=== PATIENT | male | born 1965 | race Caucasian/White ===

== ENCOUNTER 2019-09-15 05:15 | Outpatient (CLI) | payer OTHER ==
[2019-09-15 10:13] LABS: #Eosinphils 0.1 thou/uL (0.0-0.7); #Monocytes 0.6 thou/uL (0.11-0.59); #Neutrophils 1.9 thou/uL (1.40-6.50); %Eosinophils 2.6 % (0.0-10.0); %Lymphocytes 42.7 % (21.0-51.0); %Monocytes 12.4 % (0.0-10.0); %Neutrophils 41.4 % (42.0-75.0); Hemoglobin 15.6 g/dL (14.0-18.0); Mean Corpuscular Hemoglobin 31.2 pg (27.0-31.0); Mean Corpuscular Volume 89.1 fL (78.0-98.0); Mean Platelet Volume 8.9 fL (7.4-10.4); Platelet Count 199 thou/uL (130-400); RBC Distribution Width 10.8 % (11.5-14.5); White Blood Cell (WBC) Count 4.7 thou/uL (4.8-10.8)
== END 2019-09-15 05:16 | disposition home or self-care (01) ==
LOC: LABBT 05:15
PROVIDERS: ATTEND Orthopaedic Surgery Hand Surgery
DX: Z01.812 Encounter for preprocedural laboratory examination (principal); M67.442 Ganglion, left hand
CPT/HCPCS: 85025

== ENCOUNTER 2019-09-18 12:56 | Day surgery (SDC) | payer OTHER ==
[2019-09-15 08:49] VITALS: BMI 29.5
[2019-09-18] MEDS ORDERED: Clindamycin/D5W 600 mg/50 ml Premix Bag ONE (13:31)
[2019-09-18] MEDS ORDERED: Bupivacaine PF 0.5% 30 ML VIAL ONE (15:11)
[2019-09-18] MEDS ORDERED: Dexamethasone 20 MG/5 ML VIAL ONE (15:11)
[2019-09-18] MEDS ORDERED: Betamet Acet/Betamet Na Ph 30 MG/5 ML VIAL ONE (15:11)
[2019-09-18] MEDS ORDERED: PROPOFOL 200 MG/20 ML VIAL ONE (15:11)
[2019-09-18] MEDS ORDERED: Ondansetron PF 4 MG/2 ML Vial ONE (15:11)
[2019-09-18] MEDS ORDERED: EPINEPHrine 1 MG/ML AMP ONE (15:11)
[2019-09-18] MEDS ORDERED: Lidocaine 1% PF 5 ML VIAL ONE (15:11)
[2019-09-18] MEDS ORDERED: Bacitracin Zinc Ointment 30 gm TUBE ONE (15:11)
[2019-09-18] MEDS ORDERED: Fentanyl 100 MCG/2 ML VIAL ONE (15:25)
[2019-09-18] MEDS ORDERED: Ketorolac Tromethamine 30 MG/ML VIAL ONE (16:54)
[2019-09-18] MEDS ORDERED: HYDROcodone/Acetaminophen 5/325 mg Tablet ONE (18:00)
--- NOTE | 2019-09-18 21:34 | OP ---
DATE OF PROCEDURE: 09/18/2019 PREOPERATIVE DIAGNOSIS: Left middle finger ganglion. POSTOPERATIVE DIAGNOSIS: Left middle finger ganglion, 1.0 cm emanated from the junction of the flexor tendon sheath as it went onto the A2 tomasz. PROCEDURE PERFORMED: Left middle finger excision of ganglion flexor tendon sheath. SPECIMENS SENT: Ganglion from the flexor tendon sheath. TOURNIQUET TIME: 12 minutes. ESTIMATED BLOOD LOSS: 10 mL. ANESTHESIA: General LMA technique augmented by 10 mL of 0.5% at metacarpophalangeal joint block level. DESCRIPTION OF PROCEDURE: After successful general endotracheal anesthesia, limb was prepped and draped. The patient then had time-out done appropriately. We identified the middle finger as the ganglion site and it was located on the ulnar aspect, so we created a Brendon incision to maximize this dissection. We then carried through skin and subcutaneous tissue and at 0.5 mm proximally, the ganglion identified. The ulnar digital nerve and neurovascular bundle protected. We then dissected away from the both neurovascular bundles, found the mass slightly centered more ulna and lifted out until there was a 2 mm x 2 mm rim of flexor sheath which we removed as well. The flexor tendon was intact completely. A2 tomasz was intact completely. The mass was sent to pathology and we released the tourniquet. Placed 3 mL of Celestone in the wound, held pressure for 5 minutes and then we had excellent hemostasis. Closed incision with interrupted 4-0 nylon in a simple pattern. Bulky dressing was applied and the patient left the operating room without evidence of anesthetic or operative complications. Job ID: [id number]
== END 2019-09-18 18:20 | disposition home or self-care (01) ==
LOC: SDC 12:56
PROVIDERS: ATTEND Orthopaedic Surgery Hand Surgery
PROC: 0LB80ZZ Excision of Left Hand Tendon, Open Approach (ICD-10-PCS; principal; 2019-09-18)
DX: M67.442 Ganglion, left hand (principal); E78.00 Pure hypercholesterolemia, unspecified; E78.5 Hyperlipidemia, unspecified; Z79.82 Long term (current) use of aspirin; Z79.899 Other long term (current) drug therapy; Z88.0 Allergy status to penicillin
CPT/HCPCS: 88304; J0171; J0702; J1100; J1885; J2001; J2405; J2704; J3010; J3490; S0020

== ENCOUNTER 2020-11-25 09:19 | Outpatient (CLI) | payer BC ==
[2020-11-25] MEDS ORDERED: Magnevist 469MG/ML 20 ML VIAL ONE (13:16)
== END 2020-11-25 09:20 | disposition home or self-care (01) ==
LOC: TBSIIMAG 09:19
PROVIDERS: ATTEND Psychiatry & Neurology Neurology
DX: R42 Dizziness and giddiness (principal); I67.82 Cerebral ischemia
CPT/HCPCS: 70553; A9579

== ENCOUNTER 2021-01-08 10:23 | Outpatient (CLI) | payer BC | END 2021-01-08 10:24 | disposition home or self-care (01) | LOC: SCSMRI 10:23 | PROVIDERS: ATTEND Family Medicine | DX: M47.22 Other spondylosis with radiculopathy, cervical region (principal); R51.9 Headache, unspecified; R42 Dizziness and giddiness; H93.13 Tinnitus, bilateral; M48.02 Spinal stenosis, cervical region; M48.54XA Collapsed vertebra, not elsewhere classified, thoracic region, initial encounter for fracture | CPT/HCPCS: 71046; 72141 ==

== ENCOUNTER 2021-09-01 16:30 | Outpatient (CLI) | payer BC | END 2021-09-01 16:31 | disposition home or self-care (01) | LOC: SLEEPLAB 16:30 | PROVIDERS: ATTEND Family Medicine | DX: G47.33 Obstructive sleep apnea (adult) (pediatric) (principal); R53.83 Other fatigue; R09.89 Other specified symptoms and signs involving the circulatory and respiratory systems; R06.83 Snoring; G47.00 Insomnia, unspecified; E66.9 Obesity, unspecified; Z68.29 Body mass index [BMI] 29.0-29.9, adult | CPT/HCPCS: 95806 ==

== ENCOUNTER 2022-01-28 09:01 | Outpatient (CLI) | payer BC | END 2022-01-28 09:02 | disposition home or self-care (01) | LOC: LABBT 09:01 | PROVIDERS: ATTEND Orthopaedic Surgery | DX: Z01.818 Encounter for other preprocedural examination (principal); M17.11 Unilateral primary osteoarthritis, right knee | CPT/HCPCS: 71046; 93005; 93010 ==

== ENCOUNTER 2022-02-02 06:25 | Observation (INO) | payer BC ==
[2022-01-28 10:16] LABS: Bilirubin Neg (Negative); Blood, Urine Negative (Negative); Clarity Clear (Clear); Glucose, Urine (Dipstick) Normal (Negative); Ketone, Urine Negative (Negative); Leukocyte Negative (Negative); Nitrite Negative (Negative); Protein, Urine (Dipstick) Negative (Neg-Trace); Specific Gravity, Urine 1.025 (1.002-1.036); Urobilinogen Normal mg/dL (Less than 2)
[2022-01-28 10:32] LABS: #Basophils 0.1 10x3/uL (0.0-0.2); #Eosinphils 0.2 10x3/uL (0.0-0.5); #Monocytes 0.6 10x3/uL (0.0-1.1); #Neutrophils 1.8 10x3/uL (1.5-8.4); %Basophils 1.3 % (0.0-2.0); %Eosinophils 3.6 % (0.0-6.0); %Lymphocytes 42.8 % (18.0-47.0); %Monocytes 12.8 % (0.0-10.0); %Neutrophils 39.3 % (40.0-75.0); Mean Corpuscular HGB CONC 34.2 g/dL (32.0-36.0); Mean Corpuscular Hemoglobin 30.1 pg (27.0-33.0); Mean Corpuscular Volume 88.2 fl (81.2-95.1); Mean Platelet Volume 10.6 fl (7.4-10.4); Platelet Count 206 10x3/uL (150-450); RBC Distribution Width 12.4 % (11.5-14.5); Red Blood Cell (RBC) Count 4.98 10x6/uL (4.32-5.72); White Blood Cell (WBC) Count 4.5 10x3/uL (3.5-10.5)
[2022-01-28 10:56] LABS: Anion Gap 13 mmol/L (10-20); BUN (Urea Nitrogen) 15 mg/dL (8.4-25.7); Calc. Creatinine Clearance 0 mL/min (70-130); Calcium 9.8 mg/dL (7.8-10.44); Carbon Dioxide 27 mmol/L (22-29); Chloride 103 mmol/L (98-107); Glucose 105 mg/dL (70-105); Potassium 4.4 mmol/L (3.5-5.1); Sodium 139 mmol/L (136-145)
[2022-01-28 15:56] VITALS: BMI 29.5
[2022-02-02] MEDS ORDERED: Tranexamic Acid 1,000 MG/10 ML VIAL ONE ×2 (06:56→11:57)
[2022-02-02] MEDS ORDERED: Vancomycin 1 GM/200 ML BAG ONE (06:56)
[2022-02-02] MEDS ORDERED: Sodium Chloride 0.9% 100 ML ONE (06:56)
[2022-02-02] MEDS ORDERED: Midazolam HCl 2 mg/2 ml Vial ONE (08:07)
[2022-02-02] MEDS ORDERED: Fentanyl 100 MCG/2 ML VIAL ONE ×4 (08:07→12:35)
[2022-02-02] MEDS ORDERED: Bupivacaine PF 0.5% 30 ML VIAL ONE (08:25)
[2022-02-02] MEDS ORDERED: Clindamycin/D5W 600 mg/50 ml Premix Bag ONE (09:13)
[2022-02-02] MEDS ORDERED: Ondansetron PF 4 MG/2 ML Vial ONE (09:23)
[2022-02-02] MEDS ORDERED: Lidocaine 1% PF 5 ML VIAL ONE (09:23)
[2022-02-02] MEDS ORDERED: PROPOFOL 200 MG/20 ML VIAL ONE (09:23)
[2022-02-02] MEDS ORDERED: Ketorolac Tromethamine 30 MG/ML VIAL ONE (09:23)
[2022-02-02] MEDS ORDERED: Bupivacaine HCl 0.5%/Epinephrine 1:200,000/PF 30 ml Vial ONE (09:23)
[2022-02-02] MEDS ORDERED: Dexamethasone 20 MG/5 ML VIAL ONE (09:23)
[2022-02-02] MEDS ORDERED: fentaNYL Citrate/PF 100 MCG/2 ML SYRINGE ONE (09:24)
[2022-02-02] MEDS ORDERED: Fentanyl 100 MCG/2 ML VIAL SLOW IVP PRN (09:34)
[2022-02-02] MEDS ORDERED: diphenhydrAMINE 25 MG CAP PO PRN (09:40)
[2022-02-02] MEDS ORDERED: Acetaminophen 325 MG TAB PO PRN (09:40)
[2022-02-02] MEDS ORDERED: Zolpidem Tartrate 5 MG TAB PO PRN ×2 (09:40→09:45)
[2022-02-02] MEDS ORDERED: Ondansetron PF 4 MG/2 ML Vial IVP PRN ×2 (09:40→09:45)
[2022-02-02] MEDS ORDERED: Promethazine HCl 25 MG/ML VIAL IM PRN ×2 (09:40→09:45)
[2022-02-02] MEDS ORDERED: traMADol HCl 50 MG TAB PO PRN ×2 (09:45)
[2022-02-02] MEDS ORDERED: Tranexamic Acid 1,000 MG in Sodium Chloride 0.9% 100 ML IVPB SCH (09:45)
[2022-02-02] MEDS ORDERED: Ropivacaine 0.2% 550 ML 550 ML NERVE BLCK SCH (09:45)
[2022-02-02] MEDS ORDERED: HYDROcodone/Acetaminophen 10/325 mg Tablet PO PRN (09:45)
[2022-02-02] MEDS ORDERED: Labetalol HCl 100 MG/20 ML VIAL ONE (12:21)
[2022-02-02] MEDS: Ketorolac Tromethamine 30 MG/ML VIAL IVP SCH ×3 (12:34→23:45)
[2022-02-02] MEDS: Dextrose 5 %-0.45 % NaCl 1,000 ML IV SCH ×2 (13:59→22:27)
[2022-02-02] MEDS: Clindamycin/D5W 900 MG in Premix Bag 1 BAG IVPB SCH ×2 (16:45→21:50)
[2022-02-02] MEDS: HYDROcodone/Acetaminophen 10/325 mg Tablet PO PRN (19:28)
[2022-02-02] MEDS ORDERED: Vancomycin 1.5 GRAM/300 ML BAG 1.5 GM in Premix Bag 1 BAG IVPB SCH (20:00)
[2022-02-02] MEDS: Aspirin 81 mg Enteric Coated Tablet PO SCH (21:50)
[2022-02-03] MEDS: Dextrose 5 %-0.45 % NaCl 1,000 ML IV SCH (05:02)
[2022-02-03] MEDS: HYDROcodone/Acetaminophen 10/325 mg Tablet PO PRN (05:45)
[2022-02-03] MEDS: Ketorolac Tromethamine 30 MG/ML VIAL IVP SCH ×2 (05:46→11:49)
[2022-02-03 05:47] LABS: Hemoglobin 12.4 g/dL (14.0-18.0); Mean Corpuscular HGB CONC 34.2 g/dL (32.0-36.0); Mean Corpuscular Hemoglobin 31.9 pg (27.0-31.0); Mean Corpuscular Volume 93.2 fL (78.0-98.0); Mean Platelet Volume 8.6 fL (7.4-10.4); Platelet Count 180 thou/uL (130-400); RBC Distribution Width 11.3 % (11.5-14.5); White Blood Cell (WBC) Count 13.7 thou/uL (4.8-10.8)
[2022-02-03] MEDS ORDERED: Ferrous Gluconate 324 MG TAB PO SCH (08:00)
[2022-02-03] MEDS: Aspirin 81 mg Enteric Coated Tablet PO SCH (08:12)
[2022-02-03 08:37] VITALS: TEMP 98.6
[2022-02-03] MEDS ORDERED: Aspirin Chewable 81 MG TAB PO SCH (09:00)
[2022-02-03] MEDS ORDERED: Senokot S 8.6-50 MG TAB PO SCH (09:00)
[2022-02-03] MEDS ORDERED: Multivitamin W/ Minerals 1 TAB PO SCH (09:00)
[2022-02-03] MEDS ORDERED: Non-Formulary Item 1 EACH (Multivitamin [Multi-Vitamin Daily] 1 TABLET Tablet) PO SCH (09:00)
[2022-02-03 12:35] VITALS: BP 133/74
== END 2022-02-03 12:41 | disposition home or self-care (01) ==
LOC: SDC 06:25 → SURG B 07:43 → EDSTATUS 09:00
PROVIDERS: ADMIT Orthopaedic Surgery; ATTEND Orthopaedic Surgery
PROC: 0SRC0J9 Replacement of Right Knee Joint with Synthetic Substitute, Cemented, Open Approach (ICD-10-PCS; principal; 2022-02-02)
PROC: 3E0T3BZ Introduction of Anesthetic Agent into Peripheral Nerves and Plexi, Percutaneous Approach (ICD-10-PCS; 2022-02-02)
DX: M17.11 Unilateral primary osteoarthritis, right knee (principal); E78.5 Hyperlipidemia, unspecified; E78.00 Pure hypercholesterolemia, unspecified; Z79.899 Other long term (current) drug therapy; Z88.0 Allergy status to penicillin
CPT/HCPCS: 36415; 80048; 81003; 85025; 85027; 85610; 86850; 86900; 86901; 87081; 96365; 96367; 96375; 96376; A4306; C1713; C1776; G0378; J1100; J1885; J2250; J2405; J2704; J2795; J3010; J3370; J3490; S0020; U0003; U0005

== ENCOUNTER 2023-03-16 08:40 | Outpatient (CLI) | payer BC ==
[2023-03-16] MEDS ORDERED: Iopamidol-370 76% 500 ML MDV (1 ML CHARGE) ONE (10:59)
== END 2023-03-16 08:41 | disposition home or self-care (01) ==
LOC: BICCT 08:40
PROVIDERS: ATTEND Specialist
DX: G45.0 Vertebro-basilar artery syndrome (principal)
CPT/HCPCS: 70496; 70498; Q9967

== ENCOUNTER 2025-06-26 09:11 | Outpatient (CLI) | payer BC | END 2025-06-26 09:12 | disposition home or self-care (01) | LOC: RAD 09:11 | PROVIDERS: ATTEND Internal Medicine | DX: R06.00 Dyspnea, unspecified (principal) | CPT/HCPCS: 71046 ==